=== PATIENT | female | born 1950 | race American Indian/Alaskan Native ===

== ENCOUNTER 2021-12-20 03:35 | Emergency (ER) | payer MEDICARE ==
--- NOTE | 2021-12-20 04:04 | Emergency Department Report ---
ED CPR HPI - General Stated Complaint: CARDIAC ARREST Time Seen by Provider: 12/20/21 03:55 - History of Present Illness Initial Comments: Ms Corona brought in with cardiopulmonary arrest with effective CPR in progress. This was continued. Pt has had epi x 2 en route and had 3 epi at the [facility] where she coded. According to EMS patient has been complaining to her and family that she has not been feeling good all day yesterday since morning. Tonight she was taken to the [facility]. Pt was started on CPR for about 30 minutes before the EMS arrived at the clinic. EMS coded patient for additional 20 minutes while she was in asystole the whole time. She was also given biCarb and Calcium gluconate with no appreciable response. Her pupil was noted to be fully dilated and fixed with no chance of any meaningful neurological outcome. At this point at 03:38 AM CPR discontinued and patient pronounced . Differential diagnosis could be but not limited to myocardial infarction, pulmonary embolism, or cerebrovascular accident. I went and met with patient's family where the above story and history was corroborated and updated. ED Review of Systems ROS: Stated complaint: CARDIAC ARREST Other details as noted in HPI Comment: intubated ED Physical Exam - General Limitations: Other (CPR in progress and intubated ) - Eye Eye exam: Present: other Pupils: Present: other (pupil dilated and fixed ) ED Medical Decision Making - Medical Decision Making brought in with cardiopulmonary arrest with CPR in progress--pt has been coded with effective CPR and medications for the last 50 minutes. At 03:38 AM she was announced . Pt see HPI for details. Critical care attestation.: If time is entered above; I have spent that time in minutes in the direct care of this critically ill patient, excluding procedure time. ED Disposition Clinical Impression: Cardiopulmonary arrest Disposition: 20 Is pt being admited?: No Does the pt Need Aspirin: No Condition: Stable
== END 2021-12-20 04:00 ==
LOC: ED 03:35
DX: I46.9 Cardiac arrest, cause unspecified (principal)
CPT/HCPCS: 92950; 99285